=== PATIENT | female | born 1960 | race African-American/Black ===

== ENCOUNTER → 2017-06-30 | Outpatient (CLI) | payer OTHER ==
[~2017-06-30] MED LIST: ADVAIR 2501 DISK W/D PO; ALBUTEROL17 GM INH; ALLEGRA PO; AVALIDE 300-12.1 TAB PO; CELEBREX PO; DOXYCYCLINE PO; HCTZ PO; HYDROMET PO; LASIX PO; LITHIUM PO; MEDROL PO; PROTONIX PO; RISPERIDONE PO; TRAZODONE PO; ZITHROMAX PO; [UNRECOGNIZED DRUG - OTHER]
--- NOTE | ~2017-06-30 | MY29 ---
[facility] A Service of [facility] RADIOLOGY TEXT RESULTS PATIENT: BREONNA LOVELACE V LOCATION: [facility] : 56 UNIT #: [id number] AGE: [address]: Ramin Ceballos MD SEX: F ORDER DR: [id number] [facility] [address] [place], [place] [address] [id number] O MR#: [id number] Acc #: [id number] NAME: BREONNA LOVELACE : 1960 SEX: F STUDY DATE/TIME: 06/30/2017 14:00 UNIT: [facility] ROOM: STUDY DESCRIPTION: MY JO SCREENING W/ CAD BILAT Attending Physician: Ramin Ceballos M.D. Referring Physician: Ramin Ceballos M.D. Ordering Physician: Ramin Ceballos M.D. Primary Care Physician: Ramin Ceballos M.D. MEDICAL IMAGING REPORT This report is preliminary unless electronic signature is present EXAM Digital screening mammogram 06/30/2017 HISTORY 56-year-old woman no risk elevation. Previous right breast biopsy. Annual screen. COMPARISON Outside mammograms now available 08/19/2014, 09/07/2015 from [place]. FINDINGS Digital imaging of each breast was completed utilizing screening protocol. Review includes FDA-approved CAD device. Breast parenchyma is fatty replaced. Several benign calcifications left subareolar location are stable representing lipoid cysts. I see no suspicious mass characteristics. There are no suspicious microcalcifications and no architectural deformity. IMPRESSION Negative mammogram. Annual screening recommended. Patients over the age of 40 are entered into a reminder system with target due date for the next mammogram. A result letter will also be sent to the patient. BIRADS: 1 Negative Dictated by... Kwadwo Mariano M.D. THIS IS AN ELECTRONICALLY VERIFIED REPORT Kwadwo Mariano M.D. at 07/03/2017 2:19 PM [facility] A Service of [facility] RADIOLOGY TEXT RESULTS PATIENT: BREONNA LOVELACE [id number] : 56 UNIT #: [id number] AGE: [address]: Ramin Ceballos MD SEX: F ORDER DR: JAMILA/maine TD: 07/03/2017 13:02 JOB #: [id number] MEDICAL IMAGING REPORT Page 1 of 1 COPY
== END | disposition home or self-care (01) ==
LOC: CWCC 13:40
DX: Z12.31 Encounter for screening mammogram for malignant neoplasm of breast (principal); Z98.890 Other specified postprocedural states
CPT/HCPCS: G0202